=== PATIENT | female | born 1950 | race American Indian/Alaskan Native ===

== ENCOUNTER → 2017-02-18 | Outpatient (CLI) | payer OTHER, MEDICARE ==
[~2017-02-18] MED LIST: AMLO10TA4 PO; ASPI-515 PO; FURO-93 PO; GABA300C10 PO; HYDR-3240 PO; LEVO75CA2 PO; LEVO75TA5 PO; LOSA100T2 PO; METF500T4 PO; METF500T9 PO; OMEP-110 PO; POTA10TA11 PO
== END | disposition home or self-care (01) ==
LOC: ROC 10:02
PROVIDERS: ATTEND Radiology Radiation Oncology
DX: C53.9 Malignant neoplasm of cervix uteri, unspecified (principal)
CPT/HCPCS: 99212; G0463

== ENCOUNTER → 2017-04-05 | Outpatient (CLI) | payer OTHER, MEDICARE ==
[2017-04-05 15:14] LABS: ASPARTATE AMINO TRANSFERASE 15 U/L (15-37); BLOOD UREA NITROGEN 25 mg/dL (7-18)
== END | disposition home or self-care (01) ==
LOC: STAR 14:03
PROVIDERS: ATTEND Surgery
DX: Z01.818 Encounter for other preprocedural examination (principal); E11.9 Type 2 diabetes mellitus without complications; R79.1 Abnormal coagulation profile; Z85.9 Personal history of malignant neoplasm, unspecified
CPT/HCPCS: 36415; 71020; 80053; 85025; 85610; 85730; 93005

== ENCOUNTER 2017-04-23 19:48 | Emergency (ER) | payer OTHER, MEDICARE ==
[~2017-04-23] VITALS: Ht 157.5 cm; Wt 92.0 kg
[~2017-04-23 19:48] MED LIST changes: +AMLO10TA2 PO; +ASPI-621 PO; +POTASSIUM CL ER PO
[2017-04-23] MEDS ORDERED: SODIUM CHLORIDE FLUSH 10ML SYR IVF ONE (20:30)
[2017-04-23 20:32] LABS: ASPARTATE AMINO TRANSFERASE 11 U/L (15-37); BLOOD UREA NITROGEN 23 mg/dL (7-18)
[2017-04-23] MEDS ORDERED: SODIUM CHLORIDE 0.9% 1,000ML IVBOLUS ONE (21:00)
[2017-04-23 22:44] LABS: PATH.CAST-FLAG NOT PRESENT; SPERM-FLAG NOT PRESENT; SRC-FLAG NOT PRESENT; XTAL-FLAG NOT PRESENT; YLC-FLAG NOT PRESENT
[2017-04-23] MEDS ORDERED: CEFTRIAXONE PMX 1GM/50ML 50 ML IV ONE (23:30)
[2017-04-23] MEDS ORDERED: CEFTRIAXONE PMX 1GM/50ML 50 ML ONE (23:44)
[2017-04-24 00:18] VITALS: BP 120/63
[2017-04-24] MEDS ORDERED: OMNIPAQUE 350 MG/ML, 100ML BOTTLE ONE (06:12)
== END 2017-04-24 00:20 | disposition home or self-care (01) ==
LOC: ED 22:30
DX: N30.01 Acute cystitis with hematuria (principal); E11.9 Type 2 diabetes mellitus without complications; I10 Essential (primary) hypertension; Z85.41 Personal history of malignant neoplasm of cervix uteri
CPT/HCPCS: 36415; 74177; 80053; 81001; 85025; 87086; 96361; 96365; 99285; J0696; J7030; Q9967

== ENCOUNTER 2017-07-16 11:59 | Observation (INO) | payer OTHER, MEDICARE ==
[~2017-07-16] VITALS: Ht 157.5 cm; Wt 84.9 kg
[~2017-07-16 11:59] MED LIST changes: +LOSA100T6 PO; +OXYC1TAB8 PO
[2017-07-16] MEDS ORDERED: LACTATED RINGERS 1,000 ML IV SCH (12:29)
[2017-07-16] MEDS ORDERED: MIDAZOLAM 1 MG/ML, 2ML ONE (12:33)
[2017-07-16] MEDS ORDERED: HYDROmorphone 1 MG/ML, 1ML ONE ×3 (12:33→19:45)
[2017-07-16] MEDS ORDERED: FENTANYL PF 100 MCG/2ML ONE ×3 (12:33→19:09)
[2017-07-16] MEDS ORDERED: EPINEPHRINE 1 MG/ML, 1ML ONE (15:56)
[2017-07-16] MEDS ORDERED: GLYCOPYRROLATE 0.2MG/1ML, 5ML ONE (16:06)
[2017-07-16] MEDS ORDERED: SUCCINYLCHOLINE 20 MG/ML, 10ML ONE (16:06)
[2017-07-16] MEDS ORDERED: LABETALOL 5MG/ML 40ML VIAL ONE (16:06)
[2017-07-16] MEDS ORDERED: hydrALAzine 20 MG/ML, 1ML ONE (16:06)
[2017-07-16] MEDS ORDERED: ROCURONIUM 10 MG/ML ONE (16:06)
[2017-07-16] MEDS ORDERED: PROPOFOL 10 MG/ML, 20ML ONE (16:06)
[2017-07-16] MEDS ORDERED: CEFAZOLIN 1,000 MG ONE (16:06)
[2017-07-16] MEDS ORDERED: NEOSTIGMINE 1 MG/ML, 10ML ONE (16:06)
[2017-07-16] MEDS ORDERED: DEXAMETHASONE 4 MG/ML, 1ML ONE (16:06)
[2017-07-16] MEDS ORDERED: MIDAZOLAM 1 MG/ML, 2ML IV PRN (16:30)
[2017-07-16] MEDS ORDERED: HYDROcodone/APAP 7.5-325MG/15ML UDC PO PRN (16:30)
[2017-07-16] MEDS ORDERED: ONDANSETRON 2MG/ML, 2ML IVPush PRN (16:30)
[2017-07-16] MEDS ORDERED: PROMETHAZINE 25 MG/ML, 1ML IV PRN (16:30)
[2017-07-16] MEDS ORDERED: OXYcodone 5 MG/5 ML ORAL.SOL UDC PO PRN (16:30)
[2017-07-16] MEDS ORDERED: HYDROmorphone 2 MG/ML, 1ML ONE (17:30)
[2017-07-16] MEDS ORDERED: BUPIVACAINE/PF-EPI 0.25% 1:200K INFIL ONE (17:46)
[2017-07-16] MEDS ORDERED: LABETALOL 5MG/ML, 20ML IV PRN (18:30)
[2017-07-16] MEDS ORDERED: hydrALAzine 20 MG/ML, 1ML IV PRN (18:30)
[2017-07-16] MEDS ORDERED: ESTROGENS CONJUGATED VAG CRM 0.625MG/1G, 30GM ONE (18:43)
[2017-07-16] MEDS: FENTANYL PF 100 MCG/2ML IV PRN ×2 (19:12→19:20)
[2017-07-16 19:20] LABS: HEMATOCRIT 33.4 % (34.6-47.8); HEMOGLOBIN 11.1 g/dL (11.7-16.4); WHITE BLOOD COUNT 16.2 x10^3/uL (3.4-10)
[2017-07-16] MEDS: HYDROmorphone 1 MG/ML, 1ML IV PRN ×4 (19:30→20:00)
[2017-07-16] MEDS ORDERED: OXYcodone 5 MG/5 ML ORAL.SOL UDC ONE (19:59)
[2017-07-16] MEDS ORDERED: KETOROLAC 30 MG/1 ML ONE (20:17)
[2017-07-16] MEDS ORDERED: KETOROLAC 30 MG/1 ML IVPush ONE (20:30)
[2017-07-16] MEDS ORDERED: ONDA4TAB7 PO (20:44)
[2017-07-16] MEDS ORDERED: METO10TA82 PO (20:49)
[2017-07-16 21:48] VITALS: BP 132/72
[2017-07-16] MEDS ORDERED: morphine SULFATE 10 MG/ML, 1ML IV PRN (23:00)
[2017-07-16] MEDS: D5%-0.45NACL+KCL 20MEQ 1,000 ML IV SCH (23:00)
[2017-07-16] MEDS ORDERED: KETOROLAC 30 MG/1 ML IV PRN (23:00)
[2017-07-16 23:14] VITALS: BP 144/84
[2017-07-17] MEDS: OXYcodone/APAP 5/325MG TABLET PO PRN ×3 (01:30→13:41)
[2017-07-17 03:07] VITALS: BP 150/74
[2017-07-17] MEDS: D5%-0.45NACL+KCL 20MEQ 1,000 ML IV SCH (05:12)
[2017-07-17 07:46] VITALS: BP 166/80
[2017-07-17] MEDS ORDERED: ACETAMINOPHEN 500 MG TABLET ONE (11:10)
[2017-07-17] MEDS ORDERED: ACETAMINOPHEN 500 MG TABLET PO PRN (11:30)
[2017-07-17 14:33] VITALS: BP 125/72
== END 2017-07-17 17:10 | disposition home or self-care (01) ==
LOC: OUT 11:59 → ORIP 18:52 → 4NOR 20:31
PROVIDERS: ADMIT Specialist; ATTEND Specialist
DX: C53.1 Malignant neoplasm of exocervix (principal); N93.9 Abnormal uterine and vaginal bleeding, unspecified; G89.29 Other chronic pain; R10.2 Pelvic and perineal pain; I10 Essential (primary) hypertension; E11.9 Type 2 diabetes mellitus without complications; E03.9 Hypothyroidism, unspecified; F17.210 Nicotine dependence, cigarettes, uncomplicated; K21.9 Gastro-esophageal reflux disease without esophagitis; Z92.3 Personal history of irradiation; Z92.21 Personal history of antineoplastic chemotherapy
CPT/HCPCS: 36415; 52332; 58571; 74000; 82962; 85025; 86850; 86900; 86923; 88305; 88307; 88331; C2617; G0378; J0171; J0330; J0360; J0690; J1100; J1170; J1885; J2250; J2704; J2710; J3010; S2900; J3490

== ENCOUNTER 2017-11-08 09:11 | Day surgery (SDC) | payer OTHER, MEDICARE ==
[~2017-11-08] VITALS: Ht 157.5 cm; Wt 82.1 kg
[~2017-11-08 09:11] MED LIST changes: +BUPIVACAINE/PF 0.25% ONE; +EPINEPHRINE 1 MG/ML, 1ML ONE; +INUL1TAB PO; +LIDOCAINE GEL 2%, 5ML ONE; +METO10TA82 PO; +ONDA4TAB7 PO; +SENN1TAB68 PO; +SILVER SULF. CRM 1% , 25GM ONE; +TRAM50TA2 PO
[2017-11-08 09:47] VITALS: BP 176/96
[2017-11-08] MEDS ORDERED: MIDAZOLAM 1 MG/ML, 2ML ONE (10:03)
[2017-11-08] MEDS ORDERED: FENTANYL PF 100 MCG/2ML ONE (10:03)
[2017-11-08] MEDS: LACTATED RINGERS 1,000 ML IV SCH ×2 (10:28→12:04)
[2017-11-08 10:38] LABS: BASOPHILS # (AUTO) 0.02 x10^3/uL (0-0.1); BASOPHILS % (AUTO) 0 % (0-1); EOSINOPHILS # (AUTO) 0.07 x10^3/uL (0-0.4); EOSINOPHILS % (AUTO) 1 % (1-7); LYMPHOCYTES # (AUTO) 0.61 x10^3/uL (1-3.4); LYMPHOCYTES % (AUTO) 11 % (22-44); MD NO; MEAN CORPUSCULAR HGB CONC 32.6 g/dL (32.4-35.8); MEAN CORPUSCULAR VOLUME 85.9 fL (80-100); MEAN PLATELET VOLUME 6.9 fL (7.4-10.4); MONOCYTES # (AUTO) 0.23 x10^3/uL (0.2-0.8); MONOCYTES % (AUTO) 4 % (2-9); NEUTROPHILS # (AUTO) 4.48 x10^3/uL (1.8-6.8); NEUTROPHILS % (AUTO) 83 % (42-75); PLATELET COUNT 403 x10^3/uL (130-400); RED CELL DISTRIBUTION WIDTH 16.9 % (9.6-15.2)
[2017-11-08 10:47] LABS: INTERNATIONAL NORMALIZED RATIO 0.95 (0.93-1.1); PROTHROMBIN TIME 9.9 Seconds (9.6-11.5)
[2017-11-08 10:51] LABS: ALANINE AMINOTRANSFERASE 11 U/L (12-78); ALBUMIN 3.4 g/dL (3.4-5.0); ANION GAP 5 mmol/L (5-15); CHLORIDE 106 mmol/L (98-107); CREATININE 1.16 mg/dL (0.55-1.02)
[2017-11-08 10:54] LABS: ALKALINE PHOSPHATASE 79 U/L (45-117); BILIRUBIN,TOTAL 0.2 mg/dL (0.2-1.0); TOTAL PROTEIN 8.4 g/dL (6.4-8.2)
[2017-11-08] MEDS ORDERED: PROMETHAZINE 25 MG/ML, 1ML IV PRN (11:00)
[2017-11-08] MEDS ORDERED: OXYcodone 5 MG/5 ML ORAL.SOL UDC PO PRN (11:00)
[2017-11-08] MEDS ORDERED: ALBUTEROL SULFATE 2.5 MG/3 ML NPPB PRN (11:00)
[2017-11-08] MEDS ORDERED: FENTANYL PF 100 MCG/2ML IV PRN (11:00)
[2017-11-08] MEDS ORDERED: hydrALAzine 20 MG/ML, 1ML IV PRN (11:00)
[2017-11-08] MEDS ORDERED: LABETALOL 5MG/ML, 20ML IV PRN (11:00)
[2017-11-08] MEDS ORDERED: LORazepam 2 MG/ML, 1ML IVPush PRN (11:00)
[2017-11-08] MEDS ORDERED: HYDROmorphone 1 MG/ML, 1ML IV PRN (11:00)
[2017-11-08] MEDS ORDERED: ACETAMINOPHEN 325 MG TABLET PO PRN (11:00)
[2017-11-08] MEDS ORDERED: ONDANSETRON 2MG/ML, 2ML ONE (11:02)
[2017-11-08] MEDS ORDERED: DEXAMETHASONE 4 MG/ML, 1ML ONE (11:02)
[2017-11-08] MEDS ORDERED: CEFAZOLIN 1,000 MG ONE (11:02)
[2017-11-08] MEDS ORDERED: PROPOFOL 10 MG/ML, 20ML ONE (11:02)
[2017-11-08] MEDS ORDERED: ACETAMINOPHEN 325 MG TABLET ONE (11:27)
[2017-11-08] MEDS ORDERED: hydrALAzine 20 MG/ML, 1ML ONE (11:36)
[2017-11-08] MEDS ORDERED: OXYcodone 5 MG/5 ML ORAL.SOL UDC ONE (12:19)
== END 2017-11-08 14:20 ==
LOC: OUT 09:11
PROVIDERS: ATTEND Specialist
DX: C53.9 Malignant neoplasm of cervix uteri, unspecified (principal); N30.41 Irradiation cystitis with hematuria; N93.9 Abnormal uterine and vaginal bleeding, unspecified; Z90.710 Acquired absence of both cervix and uterus; K21.9 Gastro-esophageal reflux disease without esophagitis; E03.9 Hypothyroidism, unspecified; E11.9 Type 2 diabetes mellitus without complications; E66.9 Obesity, unspecified; Z68.33 Body mass index [BMI] 33.0-33.9, adult
CPT/HCPCS: 36415; 52000; 57100; 80053; 85025; 85610; 85730; 88305; 88312; 93005; J0360; J0690; J1100; J2250; J2405; J2704; J3010; J7120; J0171; J3490

== ENCOUNTER → 2017-12-17 | Outpatient (CLI) | payer OTHER, MEDICARE ==
[~2017-12-17] MED LIST changes: -BUPIVACAINE/PF 0.25% ONE; -EPINEPHRINE 1 MG/ML, 1ML ONE; -LIDOCAINE GEL 2%, 5ML ONE; -SILVER SULF. CRM 1% , 25GM ONE
== END | disposition home or self-care (01) ==
LOC: ROC 11:15
PROVIDERS: ATTEND Radiology Radiation Oncology
DX: C53.9 Malignant neoplasm of cervix uteri, unspecified (principal)
CPT/HCPCS: 99212; G0463

== ENCOUNTER → 2018-04-14 | Outpatient (CLI) | payer MEDICARE, OTHER ==
[~2018-04-14] MED LIST changes: -METF500T4 PO; +METF500T5 PO
== END | disposition home or self-care (01) ==
LOC: ROC 07:43
PROVIDERS: ATTEND Radiology Radiation Oncology
DX: C53.9 Malignant neoplasm of cervix uteri, unspecified (principal)
CPT/HCPCS: G0463

== ENCOUNTER → 2018-10-21 | Outpatient (CLI) | payer MEDICARE ==
[~2018-10-21] MED LIST changes: -AMLO10TA2 PO; +AMLO10TA6 PO; -ASPI-621 PO; +ASPI81TA45 PO; -LOSA100T6 PO; +LOSA100T7 PO; +METF500T17 PO; -METF500T5 PO
== END | disposition home or self-care (01) ==
LOC: ROC 07:21
PROVIDERS: ATTEND Radiology Radiation Oncology
DX: Z02.9 Encounter for administrative examinations, unspecified (principal)